=== PATIENT | female | born 1935 | race Caucasian/White ===

== ENCOUNTER 2018-05-17 13:04 | Emergency (ER) | payer MEDICARE, MEDICAID ==
[~2018-05-17] VITALS: Ht 165.1 cm; Wt 90.9 kg
[~2018-05-17 13:04] MED LIST: ACET650T46 PO; ALBU18HF2 INH; ALPR-149 PO; AMIO200T27 PO; ASPI-611 PO; CALC500T33 PO; CARV3.122 PO; FURO-150 PO; GABA600T2 PO; HYPR25DR2 OP; MAGN500C16 PO; MELA10CA2 PO; MOME13HF2 INH; NITR0.4T51 SL; POTA10TA10 PO; TRAM1TAB7 PO; TRAZ-219 PO; VALS80TA2 PO
[2018-05-17] MEDS ORDERED: epiNEPHrine 0.1mg/ml 10ml syringe ONE (14:00)
[2018-05-17] MEDS ORDERED: sod chloride 0.9% 10ml flush syringe IV ONE (14:00)
[2018-05-17] MEDS ORDERED: amiodarone in dextrose, iso-osm 150mg/100ml bag IV ONE (14:00)
== END 2018-05-17 16:30 | disposition expired ==
LOC: ER 13:04
DX: I46.9 Cardiac arrest, cause unspecified (principal); I25.10 Atherosclerotic heart disease of native coronary artery without angina pectoris; I50.9 Heart failure, unspecified; E78.00 Pure hypercholesterolemia, unspecified; J44.9 Chronic obstructive pulmonary disease, unspecified; G89.29 Other chronic pain; Z90.49 Acquired absence of other specified parts of digestive tract; Z95.1 Presence of aortocoronary bypass graft; Z95.0 Presence of cardiac pacemaker; Z88.0 Allergy status to penicillin; Z88.5 Allergy status to narcotic agent; Z79.899 Other long term (current) drug therapy
CPT/HCPCS: 92950; 99285; J0171; J0282